=== PATIENT | female | born 1955 | race Caucasian/White ===

== ENCOUNTER 2018-09-26 06:46 | Outpatient (CLI) | payer OTHER ==
[2018-09-26] VITALS (8 sets, daily range): BP systolic 85–109; BP diastolic 49–71
[~2018-09-26] VITALS: Ht 160 cm; Wt 55.3 kg
[2018-09-26] MEDS ORDERED: ceFAZolin SODIUM 1 GM in IV DEXTROSE 5% 50 ML IV ONE (07:00)
[2018-09-26] MEDS ORDERED: TIZA4TAB PO (07:04)
[2018-09-26] MEDS ORDERED: LISI1TAB5 PO (07:04)
[2018-09-26 07:18] LABS: BASO % 1 % (0-3); EOS # 0.1 x10^3/uL (0.0-0.7); EOS % 1 % (0-3); HEMATOCRIT 44.5 % (36.0-47.0); HEMOGLOBIN 15.5 g/dL (12.0-15.5); LYMPH # 1.2 x10^3/uL (1.0-4.8); LYMPH % 17 % (24-48); MEAN CORPUSCULAR HEMOGLOBIN 33 pg (25-35); MEAN CORPUSCULAR HGB CONC 35 g/dL (31-37); MEAN CORPUSCULAR VOLUME 95 fL (79-100); MONO # 0.7 x10^3/uL (0.0-1.1); MONO % 10 % (0-9); NEUT # 5.1 x10^3uL (1.8-7.7); NEUT % 71 % (31-73); PLATELET COUNT 210 x10^3/uL (140-400); RED BLOOD COUNT 4.69 x10^6/uL (3.50-5.40); RED CELL DISTRIBUTION WIDTH 13.7 % (11.5-14.5); WHITE BLOOD COUNT 7.2 x10^3/uL (4.0-11.0)
[2018-09-26 07:42] LABS: PROTHROMBIN TIME PATIENT 12.8 SEC (11.7-14.0)
[2018-09-26] MEDS ORDERED: LIDOCAINE WITH 8.4% SOD BICARB 3 ML DISP.SYRIN. ONE (07:55)
[2018-09-26] MEDS ORDERED: IOHEXOL 240 MG/ML 50ML VIAL. ONE (08:00)
[2018-09-26] MEDS ORDERED: fentaNYL PF VIAL 100 MCG/2 ML VIAL ONE ×2 (08:31→08:54)
[2018-09-26] MEDS ORDERED: MIDAZOLAM HCL/PF 2 MG/2 ML VIAL. ONE ×2 (08:31→08:54)
[2018-09-26] MEDS ORDERED: MIDAZOLAM HCL/PF 2 MG/2 ML VIAL. IV ONE (09:15)
[2018-09-26] MEDS ORDERED: IOHEXOL 240 MG/ML 50ML VIAL. IJ ONE (09:15)
[2018-09-26] MEDS ORDERED: LIDOCAINE WITH 8.4% SOD BICARB 3 ML DISP.SYRIN. IJ ONE (09:15)
[2018-09-26] MEDS ORDERED: fentaNYL PF VIAL 100 MCG/2 ML VIAL IV ONE (09:15)
--- NOTE | 2018-09-26 09:18 | PDOC ---
MODERATE SEDATION ASSESSMENT RISKS/ALTERNATIVES Risks/Alternatives Risks and alternatives of this type of sedation and procedure discussed with: RISK/ALTERNATIVES: Patient H & P ON CHART H & P H & P on chart and reviewed for co-morbid conditions and appropriate labs. H&P ON CHART: Yes STATUS PREG STATUS ASSESSED: Yes MEDS/ALLERGIES REVIEWED Meds/Allergies Reviewed Medications and Allergies including time and route of recently administered narcotics and sedatives. MEDS/ALLERGIES REVIEWED: Yes ASA RATING ASA RATING: II AIRWAY ASSESSMENT Airway Assessment Airway patency, oral function limitations, presence of caps, crowns, dentures, partials, and ability to extend neck assessed. AIRWAY ASSESSMENT: Yes MALLAMPATI SCORE MALLAMPATI SCORE: II PRE-SEDATION ASSESSMENT PRE-SEDATION ASSESSMENT: Yes ELANA GRIMES MD Sep 26, 2018 09:18
--- NOTE | 2018-09-26 09:19 | PDOC ---
Exam Surgical Physician Assistant Surgical Physician Assistant Jr Food Service Manager Food Service Manager Ashley Pre-Procedure Diagnosis Pre-Procedure Diagnosis L3 compression fracture Post-Procedure Diagnosis Post-Procedure Diagnosis Same Procedure Performed Procedure Performed L3 kyphoplasty Type of Anesthesia Type of Anesthesia Mod Sedation Estimated Blood Loss EBL: 5 Specimens Specimans None Drain/Tubes Drains/Tubes None Condition of Patient Condition of Patient Stable Disposition Disposition To recovery area. Expect discharge ELANA GRIMES MD Sep 26, 2018 09:19
--- NOTE | 2018-09-26 10:14 | RAD ---
09/26/2018 Fluoroscopically guided kyphoplasty, L3 Indication:62-year-old female with L3 compression fracture. Pain is refractory to conservative treatment measures, and limiting activities of daily living. Fluoro time: 8.2 minutes Dose area product: 871 mGym2 Moderate sedation: The patient was appropriately monitored by a qualified independent observer throughout the course of the moderate sedation. [id number] sedation time:30 minutes Consent: The risks and benefits of the procedure were discussed with the patient. Informed consent was obtained. The patient was brought to the fluoroscopy suite and placed in the prone position. A timeout procedure was performed. Preprocedural antibiotics were administered. Procedure: The overlying skin was prepped and draped in the usual sterile fashion. All elements of maximal sterile barrier technique including the use of a cap, mask, sterile gown, sterile gloves, large sterile sheet, appropriate hand hygiene, and 2% chlorhexidine for cutaneous antisepsis (or acceptable alternative antiseptic per current guidelines) were followed for this procedure. Using a left transpedicular approach, and direct fluoroscopic guidance, a trocar needle was advanced to the posterior third of the targeted vertebral body. Vertebral augmentation balloon was then coaxially introduced through the needle, into the more central vertebral body and was deployed. A curved cement delivery needle was advanced into the contralateral vertebral body. Contrast opacified polymethylmethacrylate was then very slowly and carefully introduced through the vertebral augmentation needle, using strict fluoroscopic control. Once adequate filling had been achieved the needles were removed and manual pressure was held. No significant extravasation or complication was identified. Sterile dressing was applied. Patient tolerated the procedure well, without apparent complication. Impression: Fluoroscopically guided kyphoplasty, L3
== END 2018-09-26 11:37 | disposition home or self-care (01) ==
LOC: INTRAD 06:46
PROVIDERS: ATTEND Surgery
DX: M48.56XA Collapsed vertebra, not elsewhere classified, lumbar region, initial encounter for fracture (principal); M54.5 Low back pain; Z88.5 Allergy status to narcotic agent; Z79.01 Long term (current) use of anticoagulants
CPT/HCPCS: 22514; 36415; 85025; 85610; 99152; 99153; C1725; J0690; J2250; J3010; Q9966